=== PATIENT | female | born 1940 | race Asian ===

== ENCOUNTER 2018-02-15 00:45 | Inpatient (IN) | payer MEDICARE, OTHER ==
[2018-02-15] MEDS: ALBUTEROL 0.083% (NEB) 2.5 MG/3 ML AMP INH (01:28)
[2018-02-15] MEDS: IPRATROPIUM (NEB) 0.5 MG/2.5 ML AMP INH (01:28)
[2018-02-15 02:47] LABS: AADO2 Arterial 69.6 mmHg (7.0-24.0); Allen Test ACCEPTAB; Arterial Base Excess -1.3 mmol/L (-3.0-3); Arterial Blood Gas Oxygen Sat 95.4 mmHG (95.0-100.0); Arterial COHb 0.3 % (0.0-3.0); Arterial Fraction of Oxyhgb 94.8 % (93.0-99.0); Arterial HCO3 23.3 mmol/L (22.0-26.0); Arterial MetHb 0.3 % (0.0-1.5); Arterial Total Hemglobin 11.2 g/dl (12.0-18.0); Arterial pCO2 38.9 mmhg (35-45); MODE NASAL CANNULA; Site Left Radial
[2018-02-15 02:54] LABS: ADD MAN DIFF? NO
[2018-02-15 02:58] LABS: BASOPHIL # 0.1 10^3/ul (0.0-0.1); BASOPHILS % 0.8 % (0.0-2.0); EOSINOPHILS # 0.1 10^3/ul (0.0-0.5); EOSINOPHILS % 1.4 % (0.0-7.0); HEMATOCRIT 34.3 % (37.0-47.0); HEMOGLOBIN 11.3 g/dl (12.0-16.0); LYMPHOCYTES # 1.9 10^3/ul (0.8-2.9); LYMPHOCYTES % 23.5 % (15.0-51.0); MEAN CORPUSCULAR HEMOGLOBIN 31.1 pg (29.0-33.0); MEAN CORPUSCULAR HGB CONC 32.9 g/dl (32.0-37.0); MEAN CORPUSCULAR VOLUME 94.5 fl (82.0-101.0); MEAN PLATELET VOLUME 10.5 fl (7.4-10.4); MONOCYTE # 0.9 10^3/ul (0.3-0.9); MONOCYTES % 11.4 % (0.0-11.0); NEUTROPHILS % 62.5 % (39.0-77.0); PLATELET COUNT 268 10^3/UL (140-415); RED BLOOD COUNT 3.63 10^6/ul (4.20-5.40)
[2018-02-15 03:13] LABS: INR 2.31
[2018-02-15 03:14] LABS: PARTIAL THROMBOPLASTIN TIME 45.7 Sec (25.0-35.0)
[2018-02-15 03:15] LABS: ALANINE AMINOTRANSFERASE 23 IU/L (13-69); ALBUMIN 4.8 g/dl (3.3-4.9); ALBUMIN/GLOBULIN RATIO 1.29; ALKALINE PHOSPHATASE 90 IU/L (42-121); ANION GAP 22 (8-16); ASPARTATE AMINO TRANSFERASE 29 IU/L (15-46); BILIRUBIN,INDIRECT 0.5 mg/dl (0-1.1); BILIRUBIN,TOTAL 0.5 mg/dl (0.2-1.3); BLOOD UREA NITROGEN 34 mg/dl (7-20); CALCIUM 9.7 mg/dl (8.4-10.2); CARBON DIOXIDE 22 mmol/L (21-31); CHLORIDE 106 mmol/L (97-110); CREATININE 2.28 mg/dl (0.44-1.00); GLUCOSE 144 mg/dl (70-220); POTASSIUM 4.9 mmol/L (3.5-5.1); SODIUM 145 mmol/L (135-144); TOTAL PROTEIN 8.5 g/dl (6.1-8.1)
[2018-02-15 03:21] LABS: LACTIC ACID 2.1 mmol/L (0.5-2.0)
[2018-02-15 03:27] LABS: B-TYPE NATRIURETIC PEPTIDE 6530 PG/ML (0-450)
[2018-02-15 03:28] LABS: TROPONIN-I < 0.012 ng/ml (0.00-0.12)
[2018-02-15] MEDS: CEFEPIME 2GM/50 ML (PMX) 50 ML IVPB ×2 (03:32→09:06)
[2018-02-15] MEDS: SODIUM CHLORIDE 0.9% 1L BAG IV* (03:32)
[2018-02-15] MEDS: VANCOMYCIN 1 GM (PMX) 250 ML IVPB ×3 (04:00→06:37)
[2018-02-15 06:05] LABS: LACTIC ACID 2.2 mmol/L (0.5-2.0)
[2018-02-15] MEDS: ALBUTEROL/IPRATROPIUM (NEB) 3 ML AMP HHN ×4 (08:36→20:23)
[2018-02-15] MEDS: FUROSEMIDE 20 MG INJ IV (09:07)
[2018-02-15 11:40] LABS: ADD MAN DIFF? NO
[2018-02-15 11:48] LABS: BASOPHILS % 0.7 % (0.0-2.0); EOSINOPHILS # 0.1 10^3/ul (0.0-0.5); EOSINOPHILS % 0.8 % (0.0-7.0); HEMATOCRIT 32.3 % (37.0-47.0); HEMOGLOBIN 10.4 g/dl (12.0-16.0); LYMPHOCYTES # 0.9 10^3/ul (0.8-2.9); MEAN CORPUSCULAR HEMOGLOBIN 30.9 pg (29.0-33.0); MEAN CORPUSCULAR HGB CONC 32.2 g/dl (32.0-37.0); MEAN CORPUSCULAR VOLUME 95.8 fl (82.0-101.0); MEAN PLATELET VOLUME 10.7 fl (7.4-10.4); MONOCYTE # 0.5 10^3/ul (0.3-0.9); MONOCYTES % 8.4 % (0.0-11.0); NEUTROPHIL # 4.5 10^3/ul (1.6-7.5); NEUTROPHILS % 74.9 % (39.0-77.0); PLATELET COUNT 209 10^3/UL (140-415); RED BLOOD COUNT 3.37 10^6/ul (4.20-5.40); RED CELL DISTRIBUTION WIDTH 14.4 % (11.5-14.5)
[2018-02-15 11:48] LABS: WHITE BLOOD COUNT 5.9 10^3/ul (4.8-10.8)
[2018-02-15 12:25] LABS: ANION GAP 17 (8-16); CARBON DIOXIDE 22 mmol/L (21-31); CHLORIDE 109 mmol/L (97-110); SODIUM 143 mmol/L (135-144)
[2018-02-15 12:26] LABS: ALANINE AMINOTRANSFERASE 25 IU/L (13-69); ALKALINE PHOSPHATASE 67 IU/L (42-121); ASPARTATE AMINO TRANSFERASE 25 IU/L (15-46); BILIRUBIN,TOTAL 0.5 mg/dl (0.2-1.3); BLOOD UREA NITROGEN 31 mg/dl (7-20); CALCIUM 9.2 mg/dl (8.4-10.2); CREATININE 2.01 mg/dl (0.44-1.00); GLUCOSE 105 mg/dl (70-220)
[2018-02-15 12:27] LABS: ALBUMIN 4.1 g/dl (3.3-4.9); ALBUMIN/GLOBULIN RATIO 1.32; TOTAL PROTEIN 7.2 g/dl (6.1-8.1)
[2018-02-15 12:29] LABS: BILIRUBIN,INDIRECT 0.5 mg/dl (0-1.1)
[2018-02-15 12:36] LABS: LACTIC ACID 2.4 mmol/L (0.5-2.0)
[2018-02-15] MEDS: METOPROLOL 25 MG TAB PO (12:52)
[2018-02-15] MEDS: INSULIN ASPART [NOVOLOG] 3 ML PEN SC ×3 (12:59→20:40)
[2018-02-15] MEDS ORDERED: DEXTROSE 50% 50 ML SYRINGE IV ×2 (13:00)
[2018-02-15] MEDS ORDERED: GLUCOSE GEL 15 GRAM TUBE PO ×2 (13:00)
[2018-02-15] MEDS ORDERED: GLUCOSE GEL 15 GRAM TUBE BUCCAL (13:00)
[2018-02-15] MEDS ORDERED: GLUCAGON 1 MG INJ IM (13:00)
[2018-02-15 13:12] LABS: CHOLESTEROL 145 mg/dl (100-200)
[2018-02-15 13:12] LABS: CHOL/HDL RATIO 2.1 RATIO; HDL CHOLESTEROL 67 mg/dl (33-92); LDL CHOLESTEROL,CALCULATED 62 mg/dl; TRIGLYCERIDES 80 mg/dl (0-149)
[2018-02-15 13:13] LABS: B-TYPE NATRIURETIC PEPTIDE 8010 PG/ML (0-450); HEMOGLOBIN A1C 6.2 % (0-5.9)
[2018-02-15 15:59] LABS: ADD UMIC NO; UR ASCORBIC ACID NEGATIVE (NEGATIVE); UR BILIRUBIN (Dip) NEGATIVE (NEGATIVE); UR BLOOD (Dip) NEGATIVE (NEGATIVE); UR CLARITY CLEAR (CLEAR); UR COLOR COLORLESS (YELLOW); UR GLUCOSE (Dip) NEGATIVE (NEGATIVE); UR KETONES (Dip) NEGATIVE (NEGATIVE); UR LEUKOCYTE ESTERASE (Dip) NEGATIVE Leu/ul (NEGATIVE); UR NITRITE (Dip) NEGATIVE (NEGATIVE); UR SPECIFIC GRAVITY (Dip) 1.006 (1.003-1.030); UR TOTAL PROTEIN (Dip) NEGATIVE (NEGATIVE); UR UROBILINOGEN (Dip) NEGATIVE (NEGATIVE)
[2018-02-15 16:00] LABS: CREATINE KINASE 59 IU/L (23-200)
[2018-02-15 16:11] LABS: CK-MB 0.61 ng/ml (0.0-2.4)
[2018-02-15 16:15] LABS: TROPONIN-I < 0.012 ng/ml (0.00-0.12)
[2018-02-15 16:40] LABS: SODIUM,URINE RANDOM 119 mmol/L (30-90)
[2018-02-15 16:56] LABS: PROTEIN/CREAT RATIO 0.48 RATIO
[2018-02-15 16:57] LABS: CREATININE,URINE RANDOM 22.46 mg/dl (20-320); CREATININE,URINE RANDOM 22.73 mg/dl (20-320)
[2018-02-15] MEDS: WARFARIN 2.5 MG TAB PO (18:20)
[2018-02-15 23:08] LABS: CREATINE KINASE 51 IU/L (23-200)
[2018-02-15 23:16] LABS: CK INDEX 1.1; CK-MB 0.58 ng/ml (0.0-2.4)
[2018-02-15 23:20] LABS: TROPONIN-I < 0.012 ng/ml (0.00-0.12)
[2018-02-16] MEDS: ALBUTEROL/IPRATROPIUM (NEB) 3 ML AMP HHN ×6 (01:04→20:42)
[2018-02-16 01:55] LABS: CREATINE KINASE 91 IU/L (23-200)
[2018-02-16] MEDS: ACCU-CHEK XX (02:00)
[2018-02-16 02:04] LABS: CK INDEX 0.7; CK-MB 0.63 ng/ml (0.0-2.4); TROPONIN-I 0.015 ng/ml (0.00-0.12)
[2018-02-16 06:08] LABS: PROTIME 27.7 Sec (11.9-14.9); PT RATIO 2.2
[2018-02-16 06:09] LABS: URIC ACID 4.7 mg/dl (3.1-7.9)
[2018-02-16 06:10] LABS: LACTIC ACID 1.3 mmol/L (0.5-2.0)
[2018-02-16 06:22] LABS: ANION GAP 17 (8-16); BLOOD UREA NITROGEN 35 mg/dl (7-20); CALCIUM 9.1 mg/dl (8.4-10.2); CARBON DIOXIDE 25 mmol/L (21-31); CHLORIDE 108 mmol/L (97-110); CREATININE 1.78 mg/dl (0.44-1.00); GLUCOSE 88 mg/dl (70-220); MAGNESIUM 1.9 mg/dl (1.7-2.5); POTASSIUM 4.2 mmol/L (3.5-5.1); SODIUM 146 mmol/L (135-144)
[2018-02-16] MEDS: INSULIN ASPART [NOVOLOG] 3 ML PEN SC ×4 (08:15→20:18)
[2018-02-16] MEDS: METOPROLOL 25 MG TAB PO (09:06)
[2018-02-16] MEDS: FUROSEMIDE 40 MG INJ IV (09:06)
[2018-02-16] MEDS: WARFARIN 2.5 MG TAB PO (17:24)
[2018-02-16] MEDS: ATORVASTATIN 20 MG TAB PO (20:12)
[2018-02-16] MEDS: BISOPROLOL 5 MG TAB PO (20:12)
[2018-02-17] MEDS: ALBUTEROL/IPRATROPIUM (NEB) 3 ML AMP HHN ×6 (00:30→21:02)
[2018-02-17] MEDS: ACCU-CHEK XX (02:00)
[2018-02-17 06:06] LABS: INR 1.99; PROTIME 23.1 Sec (11.9-14.9); PT RATIO 1.8
[2018-02-17 06:18] LABS: ANION GAP 20 (8-16); BLOOD UREA NITROGEN 41 mg/dl (7-20); CALCIUM 9.7 mg/dl (8.4-10.2); CARBON DIOXIDE 28 mmol/L (21-31); CHLORIDE 104 mmol/L (97-110); CREATININE 1.86 mg/dl (0.44-1.00); GLUCOSE 104 mg/dl (70-220); POTASSIUM 3.7 mmol/L (3.5-5.1); SODIUM 148 mmol/L (135-144)
[2018-02-17] MEDS: INSULIN ASPART [NOVOLOG] 3 ML PEN SC ×4 (08:15→21:00)
[2018-02-17] MEDS: DILTIAZEM (CD) 240 MG CAP PO (08:38)
[2018-02-17] MEDS: CALCITRIOL 0.25 MCG CAP PO (08:44)
[2018-02-17] MEDS: ISOSORBIDE MONONITRATE(SR)60 MG TAB PO (08:44)
[2018-02-17] MEDS: BISOPROLOL 5 MG TAB PO ×2 (08:45→21:28)
[2018-02-17] MEDS: FUROSEMIDE 20 MG TAB PO (08:45)
[2018-02-17] MEDS: FEBUXOSTAT 40 MG TABLET PO (08:45)
[2018-02-17] MEDS: DEXTROSE 5% 1,000 ML IV (14:45)
[2018-02-17] MEDS: WARFARIN 2.5 MG TAB PO (17:46)
[2018-02-17] MEDS: ATORVASTATIN 20 MG TAB PO (21:26)
[2018-02-18] MEDS: ALBUTEROL/IPRATROPIUM (NEB) 3 ML AMP HHN ×6 (00:55→20:30)
[2018-02-18] MEDS: ACCU-CHEK XX (02:00)
[2018-02-18] MEDS: DEXTROSE 5% 1,000 ML IV ×2 (06:26→21:17)
[2018-02-18 06:42] LABS: INR 2.04; PROTIME 23.5 Sec (11.9-14.9); PT RATIO 1.8
[2018-02-18 06:48] LABS: ANION GAP 17 (8-16); BLOOD UREA NITROGEN 54 mg/dl (7-20); CALCIUM 9.7 mg/dl (8.4-10.2); CARBON DIOXIDE 27 mmol/L (21-31); CHLORIDE 102 mmol/L (97-110); CREATININE 1.97 mg/dl (0.44-1.00); GLUCOSE 112 mg/dl (70-220); POTASSIUM 3.8 mmol/L (3.5-5.1); SODIUM 142 mmol/L (135-144)
[2018-02-18] MEDS: INSULIN ASPART [NOVOLOG] 3 ML PEN SC ×4 (08:12→20:55)
[2018-02-18] MEDS: BISOPROLOL 5 MG TAB PO ×2 (08:22→20:55)
[2018-02-18] MEDS: ISOSORBIDE MONONITRATE(SR)60 MG TAB PO (08:22)
[2018-02-18] MEDS: CALCITRIOL 0.25 MCG CAP PO (08:23)
[2018-02-18] MEDS: FUROSEMIDE 40 MG TAB PO (08:23)
[2018-02-18] MEDS: DILTIAZEM (CD) 180 MG CAP PO (08:26)
[2018-02-18] MEDS: FEBUXOSTAT 40 MG TABLET PO (08:26)
[2018-02-18] MEDS: WARFARIN 5 MG TAB PO (17:28)
[2018-02-18] MEDS: ATORVASTATIN 20 MG TAB PO (20:55)
[2018-02-18] MEDS: ACETAMINOPHEN 325 MG TAB PO (21:22)
[2018-02-19] MEDS: ALBUTEROL/IPRATROPIUM (NEB) 3 ML AMP HHN ×6 (00:50→20:13)
[2018-02-19] MEDS: ACCU-CHEK XX (02:00)
[2018-02-19 06:48] LABS: INR 2.28; PROTIME 25.7 Sec (11.9-14.9)
[2018-02-19 06:52] LABS: ANION GAP 21 (8-16); BLOOD UREA NITROGEN 64 mg/dl (7-20); CALCIUM 9.8 mg/dl (8.4-10.2); CARBON DIOXIDE 24 mmol/L (21-31); CHLORIDE 102 mmol/L (97-110); CREATININE 2.56 mg/dl (0.44-1.00); GLUCOSE 110 mg/dl (70-220); POTASSIUM 3.6 mmol/L (3.5-5.1); SODIUM 143 mmol/L (135-144)
[2018-02-19] MEDS: INSULIN ASPART [NOVOLOG] 3 ML PEN SC ×4 (08:07→21:00)
[2018-02-19] MEDS: ISOSORBIDE MONONITRATE(SR)60 MG TAB PO (09:22)
[2018-02-19] MEDS: DILTIAZEM (CD) 180 MG CAP PO (09:22)
[2018-02-19] MEDS: FUROSEMIDE 40 MG TAB PO (09:23)
[2018-02-19] MEDS: CALCITRIOL 0.25 MCG CAP PO (09:23)
[2018-02-19] MEDS: BISOPROLOL 5 MG TAB PO ×2 (09:24→21:08)
[2018-02-19] MEDS: FEBUXOSTAT 40 MG TABLET PO (10:08)
[2018-02-19] MEDS: SOD CHLORIDE 0.9% 1,000 ML IV (13:52)
[2018-02-19] MEDS: WARFARIN 5 MG TAB PO (17:32)
[2018-02-19] MEDS: ATORVASTATIN 20 MG TAB PO (21:07)
[2018-02-20] MEDS: ACCU-CHEK XX (01:23)
[2018-02-20] MEDS: ALBUTEROL/IPRATROPIUM (NEB) 3 ML AMP HHN ×3 (05:00→09:16)
[2018-02-20 07:01] LABS: INR 2.82; PROTIME 30.5 Sec (11.9-14.9); PT RATIO 2.4
[2018-02-20] MEDS: INSULIN ASPART [NOVOLOG] 3 ML PEN SC (07:58)
[2018-02-20] MEDS: DILTIAZEM (CD) 120 MG CAP PO (08:37)
[2018-02-20] MEDS: FUROSEMIDE 40 MG TAB PO (08:38)
[2018-02-20] MEDS: ISOSORBIDE MONONITRATE(SR)60 MG TAB PO (08:38)
[2018-02-20] MEDS: CALCITRIOL 0.25 MCG CAP PO (08:39)
[2018-02-20] MEDS: FEBUXOSTAT 40 MG TABLET PO (08:39)
[2018-02-20] MEDS: BISOPROLOL 5 MG TAB PO (08:39)
[2018-02-20] MEDS ORDERED: FEBUXOSTAT 40 MG TABLET PO (09:00)
== END 2018-02-20 11:52 | disposition home or self-care (01) | DRG 291 ==
LOC: MS2 05:04 → E/R 00:45 → MS2 04:01
DX: I13.0 Hypertensive heart and chronic kidney disease with heart failure and stage 1 through stage 4 chronic kidney disease, or unspecified chronic kidney disease (principal); I50.23 Acute on chronic systolic (congestive) heart failure; N17.9 Acute kidney failure, unspecified; E87.0 Hyperosmolality and hypernatremia; E87.2 Acidosis; E11.22 Type 2 diabetes mellitus with diabetic chronic kidney disease; E83.51 Hypocalcemia; I48.2 Chronic atrial fibrillation; N18.3 Chronic kidney disease, stage 3 (moderate); I42.9 Cardiomyopathy, unspecified; Z95.2 Presence of prosthetic heart valve; Z79.01 Long term (current) use of anticoagulants; I25.10 Atherosclerotic heart disease of native coronary artery without angina pectoris; M1A.9XX0 Chronic gout, unspecified, without tophus (tophi); E78.5 Hyperlipidemia, unspecified; Z86.73 Personal history of transient ischemic attack (TIA), and cerebral infarction without residual deficits; Z79.4 Long term (current) use of insulin
CPT/HCPCS: 36415; 36600; 71045; 76775; 80048; 80053; 80061; 81003; 82550; 82553; 82570; 82803; 82962; 83036; 83605; 83735; 83880; 84155; 84300; 84443; 84484; 84560; 85025; 85610; 85730; 87040; 89190; 93005; 93306; 94640; 94664; 99291-25

== ENCOUNTER 2018-05-13 02:47 | Emergency (ER) | payer MEDICARE, OTHER ==
[2018-05-13 04:23] LABS: URINE BLOOD (Dip) POC Negative (NEGATIVE); URINE GLUCOSE (Dip) POC Negative (NEGATIVE); URINE KETONES (Dip) POC Negative (NEGATIVE); URINE LEUKOCYTE EST (Dip) POC 1+ (NEGATIVE); URINE NITRITE (Dip) POC Negative (NEGATIVE); URINE TOTAL PROTEIN POC Negative (NEGATIVE)
[2018-05-13 04:25] LABS: ADD MAN DIFF? NO
[2018-05-13 04:28] LABS: BASOPHIL # 0.1 10^3/ul (0.0-0.1); BASOPHILS % 0.9 % (0.0-2.0); EOSINOPHILS # 0.1 10^3/ul (0.0-0.5); EOSINOPHILS % 0.7 % (0.0-7.0); HEMOGLOBIN 12.2 g/dl (12.0-16.0); LYMPHOCYTES # 1.3 10^3/ul (0.8-2.9); LYMPHOCYTES % 12.3 % (15.0-51.0); MEAN CORPUSCULAR HEMOGLOBIN 31.4 pg (29.0-33.0); MEAN CORPUSCULAR HGB CONC 32.1 g/dl (32.0-37.0); MEAN CORPUSCULAR VOLUME 97.9 fl (82.0-101.0); MEAN PLATELET VOLUME 9.3 fl (7.4-10.4); MONOCYTE # 0.9 10^3/ul (0.3-0.9); MONOCYTES % 8.2 % (0.0-11.0); NEUTROPHIL # 8.2 10^3/ul (1.6-7.5); NEUTROPHILS % 77.2 % (39.0-77.0); PLATELET COUNT 276 10^3/UL (140-415); RED BLOOD COUNT 3.88 10^6/ul (4.20-5.40); RED CELL DISTRIBUTION WIDTH 14.1 % (11.5-14.5)
[2018-05-13 04:28] LABS: WHITE BLOOD COUNT 10.6 10^3/ul (4.8-10.8)
[2018-05-13 04:44] LABS: ALANINE AMINOTRANSFERASE 24 IU/L (13-69); ALBUMIN 4.9 g/dl (3.3-4.9); ALKALINE PHOSPHATASE 79 IU/L (42-121); ANION GAP 18 (8-16); ASPARTATE AMINO TRANSFERASE 28 IU/L (15-46); BILIRUBIN,INDIRECT 0.6 mg/dl (0-1.1); BILIRUBIN,TOTAL 0.6 mg/dl (0.2-1.3); BLOOD UREA NITROGEN 53 mg/dl (7-20); CARBON DIOXIDE 25 mmol/L (21-31); CHLORIDE 105 mmol/L (97-110); CREATININE 2.23 mg/dl (0.44-1.00); GLUCOSE 140 mg/dl (70-220); LIPASE 211 U/L (23-300); POTASSIUM 4.9 mmol/L (3.5-5.1); SODIUM 143 mmol/L (135-144); TOTAL PROTEIN 8.4 g/dl (6.1-8.1)
[2018-05-13] MEDS: CEFTRIAXONE 1 GM/50 ML (PMX) 50 ML IVPB (05:55)
[2018-05-13] MEDS: morphine 2 MG INJ IV (05:55)
[2018-05-13] MEDS: ONDANSETRON 4 MG INJ IV (05:55)
== END 2018-05-13 07:36 | disposition home or self-care (01) ==
LOC: E/R 02:47
DX: N39.0 Urinary tract infection, site not specified (principal); K59.00 Constipation, unspecified; K80.20 Calculus of gallbladder without cholecystitis without obstruction; I50.9 Heart failure, unspecified; I12.9 Hypertensive chronic kidney disease with stage 1 through stage 4 chronic kidney disease, or unspecified chronic kidney disease; N18.9 Chronic kidney disease, unspecified; E11.22 Type 2 diabetes mellitus with diabetic chronic kidney disease; Z79.01 Long term (current) use of anticoagulants
CPT/HCPCS: 36415; 74176; 80053; 81003; 83690; 85025; 96374; 96375; 99285-25

== ENCOUNTER 2018-07-05 09:44 | Emergency (ER) | payer MEDICARE, OTHER ==
[2018-07-05] MEDS: KETOROLAC 15 MG INJ IV (10:28)
[2018-07-05] MEDS: LACTATED RINGER'S 1,000 ML IV (10:28)
[2018-07-05 10:45] LABS: WHITE BLOOD COUNT 6.1 10^3/ul (4.8-10.8)
[2018-07-05 10:45] LABS: ADD MAN DIFF? NO; BASOPHIL # 0.1 10^3/ul (0.0-0.1); EOSINOPHILS # 0.1 10^3/ul (0.0-0.5); EOSINOPHILS % 1.6 % (0.0-7.0); HEMATOCRIT 37.3 % (37.0-47.0); HEMOGLOBIN 11.8 g/dl (12.0-16.0); LYMPHOCYTES # 1.1 10^3/ul (0.8-2.9); LYMPHOCYTES % 18.4 % (15.0-51.0); MEAN CORPUSCULAR HEMOGLOBIN 31.3 pg (29.0-33.0); MEAN CORPUSCULAR HGB CONC 31.6 g/dl (32.0-37.0); MEAN CORPUSCULAR VOLUME 98.9 fl (82.0-101.0); MEAN PLATELET VOLUME 9.7 fl (7.4-10.4); MONOCYTE # 0.6 10^3/ul (0.3-0.9); MONOCYTES % 9.3 % (0.0-11.0); NEUTROPHIL # 4.2 10^3/ul (1.6-7.5); NEUTROPHILS % 69.4 % (39.0-77.0); PLATELET COUNT 247 10^3/UL (140-415); RED BLOOD COUNT 3.77 10^6/ul (4.20-5.40); RED CELL DISTRIBUTION WIDTH 13.2 % (11.5-14.5)
[2018-07-05 10:51] LABS: ALANINE AMINOTRANSFERASE 17 IU/L (13-69); ALBUMIN 4.3 g/dl (3.3-4.9); ALBUMIN/GLOBULIN RATIO 1.26; ALKALINE PHOSPHATASE 78 IU/L (42-121); ANION GAP 16 (8-16); ASPARTATE AMINO TRANSFERASE 49 IU/L (15-46); BILIRUBIN,INDIRECT 1.2 mg/dl (0-1.1); BILIRUBIN,TOTAL 1.2 mg/dl (0.2-1.3); BLOOD UREA NITROGEN 26 mg/dl (7-20); CALCIUM 9.7 mg/dl (8.4-10.2); CARBON DIOXIDE 27 mmol/L (21-31); CHLORIDE 105 mmol/L (97-110); CREATININE 1.59 mg/dl (0.44-1.00); GLUCOSE 107 mg/dl (70-220); LIPASE 103 U/L (23-300); SODIUM 144 mmol/L (135-144); TOTAL PROTEIN 7.7 g/dl (6.1-8.1)
[2018-07-05 11:02] LABS: TROPONIN-I < 0.012 ng/ml (0.000-0.120)
[2018-07-05 12:18] LABS: ADD UMIC NO; UR ASCORBIC ACID 40 mg/dL (NEGATIVE); UR BILIRUBIN (Dip) NEGATIVE (NEGATIVE); UR BLOOD (Dip) NEGATIVE (NEGATIVE); UR CLARITY CLEAR (CLEAR); UR COLOR YELLOW (YELLOW); UR GLUCOSE (Dip) NEGATIVE (NEGATIVE); UR KETONES (Dip) NEGATIVE (NEGATIVE); UR LEUKOCYTE ESTERASE (Dip) NEGATIVE Leu/ul (NEGATIVE); UR NITRITE (Dip) NEGATIVE (NEGATIVE); UR SPECIFIC GRAVITY (Dip) 1.015 (1.003-1.030); UR TOTAL PROTEIN (Dip) NEGATIVE (NEGATIVE); UR UROBILINOGEN (Dip) NEGATIVE (NEGATIVE)
== END 2018-07-05 12:42 | disposition home or self-care (01) ==
LOC: E/R 09:44
DX: M54.42 Lumbago with sciatica, left side (principal); N18.9 Chronic kidney disease, unspecified; I12.9 Hypertensive chronic kidney disease with stage 1 through stage 4 chronic kidney disease, or unspecified chronic kidney disease; E11.22 Type 2 diabetes mellitus with diabetic chronic kidney disease; I11.0 Hypertensive heart disease with heart failure; I50.9 Heart failure, unspecified; Z79.01 Long term (current) use of anticoagulants; Z86.73 Personal history of transient ischemic attack (TIA), and cerebral infarction without residual deficits
CPT/HCPCS: 36415; 80053; 81003; 83690; 84484; 85025; 87086; 93005; 96374; 99284-25